=== PATIENT | female | born 1995 | race Caucasian/White ===

== ENCOUNTER 2021-04-12 14:22 | Day surgery (SDC) | payer OTHER, SELFPAY ==
[2021-04-12] VITALS (12 sets, daily range): BP systolic 123–144; BP diastolic 69–83; PULSE 62–87; RESP 17–20; TEMP 36.9–37.3; O2SAT 91–100
--- NOTE | ~2021-04-12 | CT_ITS ---
EXAMINATION: CT abdomen pelvis w con INDICATION: Right lower quadrant pain TECHNIQUE: Computed tomographic images of the abdomen and pelvis were obtained after the administrati on of 100 cc of Omnipaque 350 intravenous contrast. The dose-length product (DLP) was 1061.51 mGy-cm. Automated exposure control and iterative reconstruction technique were employed. COMPARISON: None available FINDINGS: The lung bases are clear. The heart size is normal. The liver, spleen, pancreas, gallbladde r, and adrenal glands are normal. The kidneys are unremarkable. The appendix is normal. No pathologic ally enlarged abdominal or pelvic lymph nodes are identified. There is no free intraperitoneal gas or evidence of bowel obstruction. There is a large volume of hemoperitoneum in the abdomen and pelvis w ith blood products tracking the perihepatic and perisplenic spaces. There is a large hematoma of the pelvis measuring approximately 11.1 x 8.7 cm. Hyperdensities in the region of the left adnexa could r eflect active contrast extravasation. An IUD is present in the uterus in expected position. IMPRESSION: 1. Large volume of hemoperitoneum in the abdomen and pelvis with possible active extravasation of con trast in the left adnexa. IMPORT CLERK evaluation is recommended. These findings and recommendations were discussed with Dr. Damien Wilkerson MD in the Emergency Dep artment at 2021 hours on 04/12/2021. Reviewed, dictated and finalized at location A. IMPRESSION: 1. Large volume of hemoperitoneum in the abdomen and pelvis with possible activ e extravasation of contrast in the left adnexa. IMPORT CLERK evaluation is recommended. These findings and recommendations were discussed with Mao Garcia in the Emergency Department at 2021 hours on 04/12/2021.
[2021-04-12 14:38] LABS: Basophils Percent Auto 0.2 % (0.2-1.2); Eosinophils Absolute Auto 0.1 K/mm3 (0-0.3); Eosinophils Percent Auto 0.5 % (0-4.4); Hemoglobin 11.2 g/dL (12.0-15.0); Immature Granulocyte Absolute 0.03 K/mm3 (0.00-0.031); Immature Granulocyte Percent A 0.2 % (0-0.5); Lymphocytes Absolute Auto 2.44 K/mm3 (0.9-3.2); Lymphocytes Percent Auto 19.6 % (18.3-44.2); Mean Corpuscular HGB Conc 32.9 g/dl (32-36); Mean Corpuscular Hemoglobin 27.5 pg (26-34); Mean Corpuscular Volume 83.3 fl (80-100); Mean Platelet Volume 10.7 fl (7.4-10.4); Monocytes Absolute Auto 0.7 K/mm3 (0.1-0.6); Monocytes Percent Auto 5.6 % (2.6-8.5); Neutrophils Absolute Auto 9.2 K/mm3 (1.3-6.7); Neutrophils Percent Auto 73.9 % (45.5-73.1); Platelet Count Result 249 k/mm3 (150-375); Red Blood Count 4.08 M/mm3 (4.2-5.4); Red Cell Distribution Width 12.4 % (11.5-14.5); White Blood Count 12.5 K/mm3 (4.5-10.0)
[2021-04-12 14:50] LABS: Alanine Aminotransferase 21 U/L (4-35); Albumin Level 4.7 g/dL (3.5-5.1); Alkaline Phosphatase 64 U/L (38-126); Anion Gap 10 mmol/L (8-16); Aspartate Amino Transferase 23 U/L (14-36); Bilirubin,Total 0.7 mg/dL (0.2-1.3); Blood Urea Nitrogen 9 mg/dL (7-17); Calcium 9.4 mg/dL (8.4-10.2); Carbon Dioxide 23 mmol/L (22-30); Chloride 104 mmol/L (98-107); Estimated CRCL calculation 148 ml/min; Estimated Glomerular Filt Rate > 60; Glucose 93 mg/dL (65-110); Lipase 13 U/L (23-300); Potassium 3.8 mmol/L (3.4-5.0); Sodium 137 mmol/L (137-145)
[2021-04-12 14:52] LABS: Add Urine Microscopic? NO; Appearance Urine Clear (Clear); Bilirubin Urine Negative (Negative); Blood Urine Negative (Negative); Color Urine Yellow (Yellow); Glucose Urine UA Negative (Negative); Ketones Urine Negative (Negative); Leukocyte Esterase Ur Negative LEU/UL (Negative); Nitrate Urine Negative (Negative); Protein Urine Negative (Negative); Urobilinogen Urine Negative mg/dL (<2.0)
--- NOTE | 2021-04-12 17:30 | PC.NURSE ---
pt to intake desk asking about wait time. pt informed it might be a few more hours. pt sighed and said ugh, I've already been here 2 hours.
[2021-04-12] MEDS: ONDANSETRON INJ 4 MG/2 ML VIAL IV PUSH (20:27)
[2021-04-12] MEDS: MORPHINE SULFATE (*CRX) 4 MG/ML INJ IV PUSH (20:28)
[2021-04-12] MEDS: SODIUM CHLORIDE 0.9% IV 1,000 ML 999 ML IV CONT (20:28)
--- NOTE | 2021-04-12 20:29 | ED.ABDPAIN ---
HPI - Abdominal Pain General Chief Complaint: Abdominal Pain Stated Complaint: ABD PAIN Time Seen by Provider: 04/12/21 18:57 History of Present Illness HPI narrative: Patient is a 26-year-old female who presents ER with lower abdominal pain. Sudden onset yesterday. Really sharp in the lower abdomen and radiated up to the right side. Pain persist today and she has a lot of pressure in her lower abdomen. She had one loose stool yesterday. No history of ovarian cyst. Denies vaginal bleeding or vaginal discharge. No concern for STI. Mild fatigue but no loss of consciousness. Related Data Home Medications Medication Instructions Recorded Confirmed No Home Medications 04/12/21 04/12/21 Allergies Allergy/AdvReac Type Severity Reaction Status Date / Time No Known Allergies Allergy Verified 04/12/21 20:29 Review of Systems Review of Systems: All systems reviewed & are unremarkable except as noted in HPI and below Constitutional: Constitutional: Denies chills, Denies fever(s) and Denies weakness ENT: Denies nasal congestion and Denies sore throat Gastrointestinal: Gastrointestinal: Reports abdominal pain, Reports diarrhea, Denies nausea and Denies vomiting Genitourinary: Genitourinary: Denies abnormal vaginal bleeding, Denies hematuria, Denies nocturia, Denies dysuria and Denies flank pain Musculoskeletal: Musculoskeletal: Denies back pain and Denies muscle cramps PMFSH Past Medical History Medical History (Updated 04/12/21 @ 21:14 by Brian Cates MD) Marijuana abuse Morbid obesity Surgical History Surgical History (Updated 04/12/21 @ 21:18 by Damien Wilkerson MD) No pertinent past surgical history Social History Social History (Updated 04/12/21 @ 21:18 by Damien Wilkerson MD) Substance use type: marijuana Exam Narrative: GENERAL: Well-appearing, well-nourished, and in no acute distress. HEAD: Normocephalic, atraumatic. EYES: PERRL and EOMI. ENT: Mucous membranes moist. CHEST: Clear to auscultation. No respiratory distress. HEART: Regular rate and rhythm. Normal peripheral pulses. ABDOMEN: Soft, bilateral lower quadrant tenderness left greater than right with mild guarding, nondistended, normal active bowel sounds. EXTREMITIES: Normal range of motion. No edema. SKIN: Warm, dry, no rash. NEURO: Alert and oriented x3. PSYCH: Normal mood and affect. Course Course Emergency Course: Contacted gynecology on-call. Patient will go to the OR. She has had nothing to eat or drink today. We will add on type and screen. Vital Signs Vital signs: Vital Signs Temperature 99.2 F 04/12/21 14:26 Pulse Rate 79 04/12/21 14:26 Respiratory Rate 20 04/12/21 14:26 Blood Pressure 144/77 H 04/12/21 14:26 Pulse Oximetry 100 04/12/21 14:26 Temperature 99.2 F 04/12/21 14:26 Pulse Rate 79 04/12/21 14:26 Respiratory Rate 20 04/12/21 14:26 Blood Pressure 140/83 04/12/21 19:01 Pulse Oximetry 91 04/12/21 20:30 MDM - Abdominal Pain Lab Data Result diagrams: 04/12/21 14:31 04/12/21 14:31 Labs: Lab Results 04/12/21 04/12/21 04/12/21 Range/Units 14:31 14:31 14:42 WBC 12.5 H (4.5-10.0) K/mm3 RBC 4.08 L (4.2-5.4) M/mm3 Hgb 11.2 L (12.0-15.0) g/dL Hct 34.0 L (37.0-47.0) % MCV 83.3 (80-100) fl MCH 27.5 (26-34) pg MCHC 32.9 (32-36) g/dl RDW 12.4 (11.5-14.5) % Plt Count 249 (150-375) k/mm3 MPV 10.7 H (7.4-10.4) fl Immature Gran % (Auto) 0.2 (0-0.5) % Neut % (Auto) 73.9 H (45.5-73.1) % Lymph % (Auto) 19.6 (18.3-44.2) % [place] % (Auto) 5.6 (2.6-8.5) % Eos % (Auto) 0.5 (0-4.4) % Baso % (Auto) 0.2 (0.2-1.2) % Lymph # (Auto) 2.44 (0.9-3.2) K/mm3 [place] # (Auto) 0.7 H (0.1-0.6) K/mm3 Eos # (Auto) 0.1 (0-0.3) K/mm3 Baso # (Auto) 0.0 (0.0-0.1) K/mm3 Abs Immat Gran (auto) 0.03 (0.00-0.031) K/mm3 Absolute Neuts (auto) 9.2 H (1.3-6.7) K/mm3
--- NOTE | 2021-04-12 20:46 | WPDANESEPP ---
Anes - Eval Pre Procedure Procedure: Diagnostic laparoscopy Date/Time: 04/12/21 20:46 Pre Op Diagnosis: ABD PAIN. Hemoperitoneum Patient Data Age: 26 Gender: F Height: 1.68 m Weight: 102 kg Last Vital Signs Temp 99.2 F 04/12/21 14:26 Pulse 79 04/12/21 14:26 Resp 20 04/12/21 14:26 BP 140/83 04/12/21 19:01 Pulse Ox 91 04/12/21 20:30 Allergies Allergy/AdvReac Type Severity Reaction Status Date / Time No Known Allergies Allergy Verified 04/12/21 20:29 Home Medications Medication Instructions Recorded Confirmed Type No Home Medications 04/12/21 04/12/21 History Laboratory Tests 04/12/21 04/12/21 04/12/21 14:31 14:31 14:42 WBC 12.5 K/mm3 H K/mm3 (4.5-10.0) RBC 4.08 M/mm3 L M/mm3 (4.2-5.4) Hgb 11.2 g/dL L g/dL (12.0-15.0) Hct 34.0 % L % (37.0-47.0) MCV 83.3 fl fl (80-100) MCH 27.5 pg pg (26-34) MCHC 32.9 g/dl g/dl (32-36) RDW 12.4 % % (11.5-14.5) Plt Count 249 k/mm3 k/mm3 (150-375) MPV 10.7 fl H fl (7.4-10.4) Immature Gran % (Auto) 0.2 % % (0-0.5) Neut % (Auto) 73.9 % H % (45.5-73.1) Lymph % (Auto) 19.6 % % (18.3-44.2) [place] % (Auto) 5.6 % % (2.6-8.5) Eos % (Auto) 0.5 % % (0-4.4) Baso % (Auto) 0.2 % % (0.2-1.2) Lymph # (Auto) 2.44 K/mm3 K/mm3 (0.9-3.2) [place] # (Auto) 0.7 K/mm3 H K/mm3 (0.1-0.6) Eos # (Auto) 0.1 K/mm3 K/mm3 (0-0.3) Baso # (Auto) 0.0 K/mm3 K/mm3 (0.0-0.1) Abs Immat Gran (auto) 0.03 K/mm3 K/mm3 (0.00-0.031) Absolute Neuts (auto) 9.2 K/mm3 H K/mm3 (1.3-6.7) Absolute Nucleated RBC 0.0 K/mm3 K/mm3 (0.0-0.012) Nucleated RBC % 0.0 % % (0.0-0.2) Sodium 137 mmol/L mmol/L (137-145) Potassium 3.8 mmol/L mmol/L (3.4-5.0) Chloride 104 mmol/L mmol/L (98-107) Carbon Dioxide 23 mmol/L mmol/L (22-30) Anion Gap 10 mmol/L mmol/L (8-16) BUN 9 mg/dL mg/dL (7-17) Creatinine 0.60 mg/dL L mg/dL (0.7-1.0) Estim Creat Clear Calc 148 ml/min ml/min Estimated GFR > 60 (59 - ) Glucose 93 mg/dL mg/dL (65-110) Calcium 9.4 mg/dL mg/dL (8.4-10.2) Total Bilirubin 0.7 mg/dL mg/dL (0.2-1.3) AST 23 U/L U/L (14-36) ALT 21 U/L U/L (4-35) Alkaline Phosphatase 64 U/L U/L (38-126) Total Protein 8.0 g/dL g/dL (6.3-8.2) Albumin 4.7 g/dL g/dL (3.5-5.1) Lipase 13 U/L L U/L (23-300) Urine Color Yellow (Yellow) Urine Appearance Clear (Clear) Urine pH 6.0 (5.0-9.0) Ur Specific [place] 1.020 (1.001-1.035) Urine Protein Negative mg/dL mg/dL (Negative) Urine Glucose (UA) Negative mg/dL mg/dL (Negative) Urine Ketones Negative mg/dL mg/dL (Negative) Ur Blood (Man) Negative (Negative) Urine Nitrate Negative (Negative) Urine Bilirubin Negative (Negative) Urine Urobilinogen Negative mg/dL mg/dL (<2.0) Leukocyte Esterase Rfl Negative SRAVANTHI/UL SRAVANTHI/UL (Negative) Patient hx anesthesia problems: none Family hx anesthesia problems: none Results Review: All pre-operative results and documents have been reviewed as part of the pre-operative evaluation. [facility] Past Medical History Medical History (Updated 04/12/21 @ 21:01 by Galo Edwards CRNA) Marijuana abuse Morbid obesity Exam Day of Procedure 04/12/21 20:46 Patient weight: morbidly obese Heart: regular rate and rhythm Lungs: clear to auscultation Airway: Mallampati scale class II and class III Neurological: alert and oriented
--- NOTE | 2021-04-12 21:08 | PM.IMHP ---
H&P: HPI History of Present Illness Date/Time: 04/12/21 21:08 this patient is a 26-year-old female 0 who presents for pelvic pain. Pain began suddenly. It was sharp and on the right side of her pelvis. She began to have nausea and diaphoresis very quickly. She presented the emergency department. She denies any chest pain or shortness of breath. She denies any fevers or chills. Patient is using contraception. Chief Complaint: Pelvic and abdominal pain. Review of Systems Review of Systems: All systems reviewed & are unremarkable except as noted in HPI and below [facility] Past Medical History Medical History (Updated 04/12/21 @ 21:14 by Brian Cates MD) Marijuana abuse Morbid obesity Meds Home Medications and Allergies Home Medications Medication Instructions Recorded Confirmed Type No Home Medications 04/12/21 04/12/21 History Allergies Allergy/AdvReac Type Severity Reaction Status Date / Time No Known Allergies Allergy Verified 04/12/21 20:29 Vital Signs Vital Signs - 24 hr 04/12/21 14:26 04/12/21 19:00 04/12/21 19:01 Temperature 99.2 F Pulse Rate 79 Respiratory Rate 20 Blood Pressure 144/77 H 140/83 Pulse Oximetry 100 100 100 04/12/21 19:15 04/12/21 19:30 04/12/21 20:30 Temperature Pulse Rate Respiratory Rate Blood Pressure Pulse Oximetry 100 100 91 Exam Const: General: healthy appearing, comfortable and no acute distress Resp: Auscultation: clear to auscultation bilaterally, no rales, no rhonchi and no wheezes Cardio: Rate: regular rate Heart sounds: no click, no murmurs and no rubs GI: Inspection: non-distended GI Palp: Yes abdominal tenderness Percussion: Yes dullness to percussion Auscultation: normal bowel sounds Extrem: General: normal to inspection, no pedal edema and no calf tenderness H&P: Results Labs Labs: Short CBC 04/12/21 Range/Units 14:31 WBC 12.5 H (4.5-10.0) K/mm3 Hgb 11.2 L (12.0-15.0) g/dL Hct 34.0 L (37.0-47.0) % Plt Count 249 (150-375) k/mm3 [facility] 04/12/21 14:31 Sodium 137 Potassium 3.8 Chloride 104 Carbon Dioxide 23 BUN 9 Creatinine 0.60 L Glucose 93 Calcium 9.4 Liver Function 04/12/21 Range/Units 14:31 Total Bilirubin 0.7 (0.2-1.3) mg/dL AST 23 (14-36) U/L ALT 21 (4-35) U/L Alkaline Phosphatase 64 (38-126) U/L Albumin 4.7 (3.5-5.1) g/dL Urine 04/12/21 Range/Units 14:42 Urine Color Yellow (Yellow) Urine Appearance Clear (Clear) Urine pH 6.0 (5.0-9.0) Ur Specific [place] 1.020 (1.001-1.035) Urine Protein Negative (Negative) mg/dL Urine Glucose (UA) Negative (Negative) mg/dL Assessment and Plan Assessment and plan (1) Pelvic pain: Code(s): R10.2 - Pelvic and perineal pain Status: Acute (2) Hemoperitoneum: Code(s): K66.1 - Hemoperitoneum Status: Acute Additional Plan This patient is a 26-year-old female with pelvic pain and hemoperitoneum. She appears to have active bleeding. There is extravasation of IV contrast actively in the pelvis. We have agreed to perform diagnostic laparoscopy with evacuation of hemoperitoneum. To cauterize active bleeding. This is likely a ruptured corpus luteum cyst. Patient understands the risks, benefits, and alternatives. She has completed the informed consent process is ready to proceed.
--- NOTE | 2021-04-12 21:16 | WPDHPUPDATE1 ---
History and Physical Update Update Date/Time: 04/12/21 21:16 History and Physical has been reviewed, including an updated exam of the patient. There are NO changes in the patient's condition. Risks, benefits, and alternatives have been discussed and questions answered. Patient agrees to proceed with procedure.
--- NOTE | 2021-04-12 21:46 | WPDANESEFPP ---
Anes - Eval Final PreProcedure Day of Procedure 04/12/21 21:46 Patient weight: obese Heart: regular rate and rhythm Lungs: clear to auscultation Airway: Mallampati scale class II Neurological: alert and oriented ASA classification: III Emergent: yes Anesthetic plan: proceed Anesthesia type and monitoring: general ETT Results Review: All pre-operative results and documents have been reviewed as part of the pre-operative evaluation. Informed Consent: The patient's anesthetic plan and its attendant risks and benefits were discussed with the patient/family/POA. Questions were solicited and answers provided to the satisfaction of the patient/family/POA.
[2021-04-12] MEDS: ceFAZolin 2 GM/D5W 50 ML 2 GM/50 ML BAG IVPB (22:36)
[2021-04-12] MEDS: LACTATED RINGERS 1,000 ML 30 ML IV CONT ×2 (23:05→23:17)
--- NOTE | 2021-04-12 23:13 | W.PM.PROC2 ---
Procedure Note - Detailed Date of Procedure 04/12/21 Pre-op Diagnosis ABD PAIN. Hemoperitoneum Post-op Diagnosis same (Left ovarian cyst) Procedure Performed Diagnostic laparoscopy, evacuation of hemoperitoneum, left ovarian cystectomy Surgeon Brian Cates MD Anesthesia general Indications Pelvic pain Findings Large pelvic hemoperitoneum, actively bleeding left ovarian hemorrhagic corpus luteum cysts, 3-4 cm left ovarian cyst/paratubal cyst. Description of Procedure The patient was taken to the operating room. She was prepped and draped in the dorsal lithotomy position after induction general anesthesia. A 5 mm incision was made with a scalpel on the abdominal skin in the left upper quadrant of the abdomen. A 5 mm trocar was inserted into the intra-abdominal cavity under direct visualization the scope. In the same fashion a 5 mm left lower quadrant trocar was inserted and a 5 mm infraumbilical trocar was inserted. Hemoperitoneum was evacuated. Trocar was used to break down the clots irrigation and suction were used to break up and evacuate clots all throughout the pelvis. A left ovarian cyst was resected. This was done using sharp and blunt dissection. Involved the paratubal tissue on the left. It may be a paratubal cyst. Careful dissection was used not to injure the tube. Some cautery was used but very little. An actively bleeding left ovarian cyst was cauterized thoroughly. Hematoma was placed on the defect of the ovarian cyst and the cauterized surface of the ovary. The pelvis was irrigated. The pneumoperitoneum was reduced. The trocars were removed. Skin was closed with subcuticular 4 micro. The patient's incisions were covered with Dermabond. She was taken recovery room in stable condition. Sponge lap and needle counts were correct x2. Estimated Blood Loss 30 Drains No Packing No Pathology yes Complications No immediate complications Condition stable Disposition same day
[2021-04-12] MEDS: fentaNYL CITRATE INJ (*CRX) 100 MCG/2 ML VIAL 25 MCG IV PUSH ×2 (23:31→23:35)
[2021-04-13 00:12] VITALS: BP 133/71; PULSE 72; RESP 16; TEMP 37.1; O2SAT 100
--- NOTE | 2021-04-13 00:23 | ADMGEN ---
This patient, Jessie Samuel, was admitted to 2 Medical Room 256-01 FROM or at 0015. Patient/family oriented to hospital policies and general routines including ID bracelet, bed and alarms, visiting hours, pain management, procedures, bathroom and other care routines, personal items, smoking policy, room service/diet, and visiting hours. Information on how to activate the Rapid Response Team has been discussed. Patient/Family are encouraged to report perceived risks to care and to ask questions if they do not understand what they are told or what they should do.
[2021-04-13 00:27] VITALS: BMI 36.5
[2021-04-13] MEDS: ONDANSETRON INJ 4 MG/2 ML VIAL IV PUSH ×2 (00:45→08:13)
[2021-04-13] MEDS: HYDROcodone/acetaminophen (*CRX) 10-325 MG TABLET 1 TAB PO ×2 (00:45→05:07)
[2021-04-13 01:31] VITALS: BP 133/58; PULSE 82; RESP 16; TEMP 36.8; O2SAT 98
[2021-04-13 05:15] LABS: Basophils Percent Auto 0.1 % (0.2-1.2); Hemoglobin 10.6 g/dL (12.0-15.0); Immature Granulocyte Absolute 0.07 K/mm3 (0.00-0.031); Immature Granulocyte Percent A 0.5 % (0-0.5); Lymphocytes Percent Auto 7.4 % (18.3-44.2); Mean Corpuscular HGB Conc 32.1 g/dl (32-36); Mean Corpuscular Hemoglobin 27.5 pg (26-34); Mean Corpuscular Volume 85.7 fl (80-100); Mean Platelet Volume 11.1 fl (7.4-10.4); Monocytes Absolute Auto 0.2 K/mm3 (0.1-0.6); Monocytes Percent Auto 1.8 % (2.6-8.5); Neutrophils Absolute Auto 12.2 K/mm3 (1.3-6.7); Neutrophils Percent Auto 90.2 % (45.5-73.1); Platelet Count Result 233 k/mm3 (150-375); Red Blood Count 3.85 M/mm3 (4.2-5.4); Red Cell Distribution Width 12.6 % (11.5-14.5); White Blood Count 13.6 K/mm3 (4.5-10.0)
[2021-04-13 05:42] VITALS: BP 125/71; PULSE 100; RESP 18; TEMP 36.9; O2SAT 99
[2021-04-13 08:15] VITALS: O2SAT 96
[2021-04-13 09:47] VITALS: BP 141/64; PULSE 96; RESP 18; TEMP 36.7; O2SAT 100
--- NOTE | 2021-04-13 10:02 | PM.GYNPNOP ---
DATA LIBRARIAN - A/P Postoperative Procedures: Procedures Operation Date: 04/12/21 21:45 Actual Procedure Side Surgeon p Left Ovarian Cystectomy, Laparoscopic Evacuation of Hemoperitoneum Left Brian Cates MD Postoperative day: 1 Postoperative status: doing well Postoperative plan: see orders Time Spent With Patient Time: Total time spent is greater than 50% in coordination of care (as documented) at patient's floor/unit and/or counseling patient: Time with patient: less than 15 minutes DATA LIBRARIAN- PN:Subj Post-Op Subjective Date/time seen: 04/13/21 10:02 Subjective: patient reports feeling better, patient has no complaints and pain is well controlled Exam Const: General: healthy appearing, comfortable and no acute distress Resp: Auscultation: clear to auscultation bilaterally, no rales, no rhonchi and no wheezes Cardio: Rate: regular rate Heart sounds: no click, no murmurs and no rubs GI: Inspection: non-distended Auscultation: normal bowel sounds Extrem: General: normal to inspection, no pedal edema and no calf tenderness DATA LIBRARIAN - PN: Obj Data Vital Signs Vital Signs: Vital Signs - 24 hr 04/12/21 14:26 04/12/21 19:00 04/12/21 19:01 Temperature 99.2 F Pulse Rate 79 Respiratory Rate 20 Blood Pressure 144/77 H 140/83 Pulse Oximetry 100 100 100 04/12/21 19:15 04/12/21 19:30 04/12/21 20:30 Temperature Pulse Rate Respiratory Rate Blood Pressure Pulse Oximetry 100 100 91 04/12/21 23:05 04/12/21 23:15 04/12/21 23:25 Temperature 98.5 F Pulse Rate 81 75 Respiratory Rate 17 20 Blood Pressure 123/71 126/71 Pulse Oximetry 100 100 100 04/12/21 23:30 04/12/21 23:45 04/12/21 23:55 Temperature Pulse Rate 64 62 87 Respiratory Rate 20 18 18 Blood Pressure 136/76 127/70 123/69 Pulse Oximetry 99 97 96 04/13/21 00:12 04/13/21 01:31 04/13/21 05:42 Temperature 98.7 F 98.2 F 98.5 F Pulse Rate 72 82 100 Respiratory Rate 16 16 18 Blood Pressure 133/71 133/58 L 125/71 Pulse Oximetry 100 98 99 04/13/21 08:15 04/13/21 09:47 Temperature 98.0 F Pulse Rate 96 Respiratory Rate 18 Blood Pressure 141/64 H Pulse Oximetry 96 100 Intake/Output Intake/Output: Intake & Output 04/10/21 04/11/21 04/12/21 04/13/21 23:59 23:59 23:59 23:59 Intake Total 1175 740 Output Total 550 Balance 625 740 Meds/Results Medications: Active Medications Generic Name Dose Route Start Last Admin Trade Name Freq PRN Reason Stop Dose Admin Hydrocodone Bitart/Acetaminophen 1 tab 04/12/21 23:57 Hydrocodone/Acetaminophen (*Crx) 5-325 Mg Tablet PO Q3H PRN Pain Rated 5 or Less Hydrocodone Bitart/Acetaminophen 1 tab 04/12/21 23:57 04/13/21 05:07 Hydrocodone/Acetaminophen (*Crx) 10-325 Mg Tablet PO 1 tab Q3H PRN Administration Pain Rated 6 or Greater Ibuprofen 600 mg 04/12/21 23:57 Ibuprofen 600 Mg Tablet PO Q6H PRN Cramping Ketorolac Tromethamine 30 mg 04/12/21 23:57 Ketorolac 30 Mg/Ml Vial (*Bkc) IV PUSH 04/17/21 23:56 Q6H PRN Pain Rated 4-6 Naloxone HCl 0.1 mg 04/12/21 23:57 Naloxone Hcl 0.4 Mg/Ml Vial IV PUSH Q2M PRN Respiratory rate less than 10 Ondansetron HCl 4 mg 04/12/21 23:57 04/13/21 08:13 Ondansetron Inj 4 Mg/2 Ml Vial IV PUSH 4 mg Q6H PRN Administration Nausea And Vomiting Radiology Results: ITS Impressions Abdomen/Pelvis CT 04/12/21 20:12 IMPRESSION: 1. Large volume of hemoperitoneum in the abdomen and pelvis with possible active extravasation of contrast in the left adnexa. DATA LIBRARIAN evaluation is recommended. These findings and recommendations were discussed with Dr. Damien Wilkerson MD in the Emergency Department at 2022 hours on 04/12/2021. Labs CBC & Chem 7: 04/13/21 04:51 04/12/21 14:31 Labs: Laboratory Results - last 24 hr 04/12/21 04/12/21 04/12/21 14:31 14:31 14:42 WBC 12.5 H RBC 4.08 L Hgb 11.2 L Hct 34.0
== END 2021-04-13 11:25 | disposition home or self-care (01) ==
LOC: ANHED 21:15 → ANHSURGERY 21:34 → ANH2MED 04-13 00:01
PROVIDERS: Emergency Medicine; Emergency Provider Emergency Medicine; Visit Provider Obstetrics & Gynecology
PROC: (CPT 49320; principal; 2021-04-12 21:45)
DX: R10.2 Pelvic and perineal pain (principal); K66.1 Hemoperitoneum; N83.12 Corpus luteum cyst of left ovary; N83.8 Other noninflammatory disorders of ovary, fallopian tube and broad ligament; E66.01 Morbid (severe) obesity due to excess calories; Z68.36 Body mass index [BMI] 36.0-36.9, adult; F12.90 Cannabis use, unspecified, uncomplicated; Z97.5 Presence of (intrauterine) contraceptive device
CPT/HCPCS: 58662; 36415; 74177; 80053; 81003; 81025; 83690; 85025; 86850; 86900; 86901; 88305; 96374; 96375; 99285; A9270; J0330; J0690; J1100; J2270; J2405; J2704; J2710; J3010; J7030; J7120; Q9967

== ENCOUNTER 2021-10-01 12:29 | Emergency (ER) | payer OTHER, SELFPAY ==
[2021-10-01 12:31] VITALS: BP 129/88; PULSE 58; RESP 17; TEMP 37; O2SAT 100
--- NOTE | 2021-10-01 13:41 | ED.WOUNDLAC ---
HPI - Wound/Laceration General Chief Complaint: Wound/Laceration Stated Complaint: finger tip avulsion Time Seen by Provider: 10/01/21 13:01 History of Present Illness HPI narrative: 26 y/o female presents to the ER today for laceration to tip of left middle finger. She was using a mandolin slicer and sliced the top layer of skin off of her fingertip. She is not sure when her last tetanus vaccine was. Related Data Allergies Allergy/AdvReac Type Severity Reaction Status Date / Time No Known Allergies Allergy Verified 10/01/21 12:35 Review of Systems Constitutional: Constitutional: Denies chills and Denies fever(s) Eyes: Eyes: Reports no additional eye complaints ENT: Reports system reviewed and no additional complaints, except as documented Cardiovascular: Cardiovascular: Reports no additional cardiovascular complaints Respiratory: Respiratory: Reports no additional respiratory complaints Gastrointestinal: Gastrointestinal: Reports no additional gastrointestinal complaints Musculoskeletal: Musculoskeletal: Reports no additional musculoskeletal complaints Integumentary/Breasts: Skin/Breast: Reports as per HPI Neurologic: Denies Sensory deficit (Neuro) Endocrine: Endocrine: Reports no additional endocrine complaints Hematologic/Lymphatic: Hematologic/Lymphatic: Denies easy bleeding and Denies easy bruising PMFSH Past Medical History Medical History Marijuana abuse Morbid obesity Surgical History Surgical History No pertinent past surgical history Family History Family History Other Unknown family medical history Social History Social History Alcohol intake: never Substance use: never Substance use type: does not use Spiritual care concerns: No Exam Const: General: cooperative and healthy appearing HENMT: Head: normal to inspection Neck: Neck: normal visual inspection Chest: Chest palpation & inspection: normal inspection of the chest Resp: Effort & Inspection: normal respiratory effort GI: Inspection: normal to inspection Skin: General skin exam: normal color Other: 0.5cm avulsion lac to tip of left middle finger, dermal layer avulsed, no exposed bony structures Neuro: General: patient oriented x3 Extrem: General: normal to inspection and full ROM Course Vital Signs Vital signs: Vital Signs Temperature 37.0 C 10/01/21 12:31 Pulse Rate 58 L 10/01/21 12:31 Respiratory Rate 17 10/01/21 12:31 Blood Pressure 129/88 10/01/21 12:31 Pulse Oximetry 100 10/01/21 12:31 Temperature 37.0 C 10/01/21 12:31 Pulse Rate 58 L 10/01/21 12:31 Respiratory Rate 17 10/01/21 12:31 Blood Pressure 129/88 10/01/21 12:31 Pulse Oximetry 100 10/01/21 12:31 MDM - Wound/Laceration Differential Diagnosis Differential diagnosis: Likely laceration and avulsion of skin Discharge Plan Discharge Clinical Impression: Avulsion of finger tip Qualifiers: Encounter type: initial encounter Qualified Code(s): S61.209A - Unspecified open wound of unspecified finger without damage to nail, initial encounter Patient Disposition: Home, Self-Care Condition: Stable Instructions: Antibiotic Form, Acute Wounds (DC) Additional Instructions: clean wound daily and apply neosporin and dressing until healed. Take tylenol or ibuprofen as needed for pain. Patient Language: Nigerien Prescriptions: No Action hydrocodone-acetaminophen 5-325 mg tablet 1 - 2 tablet PO Q4H PRN (Reason: pain) Qty: 14 RF: 0 Follow-up/Referrals: PHYSICIAN,SWIMMING COACH OR INSTRUCTOR [Primary Care Provider] - 2 Days Stand Alone Forms: Work/School Release IP Time of Disposition: 13:48
[2021-10-01] MEDS: TETANUS,DIPHTHERIA,AC PERTUSSIS ADULT (0.5 ML) BOOSTRIX IM (13:56)
[2021-10-01] MEDS: IBUPROFEN 600 MG TABLET PO (13:56)
[2021-10-01] MEDS: NEOMYCIN/POLYMYXIN/BACITRACIN OINTMENT 15 GM TUBE 1 APPLIC TOPICAL (13:59)
== END 2021-10-01 14:20 | disposition home or self-care (01) ==
PROVIDERS: Emergency Provider Nurse Practitioner Family
DX: S61.209A Unspecified open wound of unspecified finger without damage to nail, initial encounter (principal); W26.8XXA Contact with other sharp object(s), not elsewhere classified, initial encounter; Z23 Encounter for immunization
CPT/HCPCS: 90471; 90715; 99283; A9270

== ENCOUNTER 2023-10-27 13:27 | Outpatient (CLI) | payer OTHER, SELFPAY ==
--- NOTE | ~2023-10-27 | US_ITS ---
EXAMINATION: US pelvic complete w TV DATE: 10/27/2023 14:19 INDICATION: Menometrorrhagia. TECHNIQUE: Multiple transabdominal and transvaginal sonographic images of the pelvis were obtained. COMPARISON: CT abdomen and pelvis 04/12/2021 FINDINGS: TRANSABDOMINAL ULTRASOUND: The uterus measures 6.9 x 3.5 x 4.3 cm. There is physiologic free fluid in the pelvis. TRANSVAGINAL ULTRASOUND: The endometrial complex measures 4 mm in thickness. The right ovary measures 3.9 x 1.8 x 2.5 cm. The left ovary measures 3.8 x 2.1 x 1.7 cm. There is normal vascular flow in the ovaries. IMPRESSION: 1. Normal pelvis. Reviewed, dictated and finalized at location E. IMPRESSION: 1. Normal pelvis.
== END 2023-10-27 13:28 | disposition home or self-care (01) ==
LOC: ANHIMG 13:30
PROVIDERS: Visit Provider Physician Assistant
DX: N64.4 Mastodynia (principal); N92.1 Excessive and frequent menstruation with irregular cycle
CPT/HCPCS: 76830; 76856

== ENCOUNTER 2023-11-03 11:47 | Outpatient (CLI) | payer OTHER, SELFPAY ==
--- NOTE | ~2023-11-03 | US_ITS ---
US breast BI complete DATE: 11/03/2023 12:36 INDICATION: Bilateral breast pain. Family history of breast cancer. TECHNIQUE: Real-time imaging of both complete breasts including all 4 quadrants and subareolar areas COMPARISON: None FINDINGS: No suspicious mass or shadowing, cyst or other significant sonographic abnormality of eithe r breast is detected. IMPRESSION: BI-RADS Category 1: Negative Reviewed, dictated and finalized at [facility]. Reviewed, dictated and finalized at [facility].
== END 2023-11-03 11:48 | disposition home or self-care (01) ==
LOC: ANHIMG 11:49
PROVIDERS: PCP Physician Assistant; Visit Provider Physician Assistant
DX: N64.4 Mastodynia (principal); N92.1 Excessive and frequent menstruation with irregular cycle
CPT/HCPCS: 76641